=== PATIENT | male | born 1995 | race Two or more races ===

== ENCOUNTER 2016-06-13 17:05 | Emergency (ER) | payer SELFPAY ==
[2016-06-13] MEDS ORDERED: IBUPROFEN 600 MG TABLET ONE (17:47)
[2016-06-13] MEDS ORDERED: ACETAMINOPHEN 325 MG TABLET ONE (17:47)
== END 2016-06-13 17:58 | disposition home or self-care (01) ==
LOC: ED 17:05
DX: R10.9 Unspecified abdominal pain (principal); F17.210 Nicotine dependence, cigarettes, uncomplicated
CPT/HCPCS: 99283 ×2; A9270 ×2